=== PATIENT | male | born 1960 | race Caucasian/White ===

== ENCOUNTER 2020-11-07 15:04 | Outpatient (REF) | payer OTHER, SELFPAY ==
--- NOTE | 2020-11-07 15:07 | XR_ITS ---
EXAMINATION: CR CHEST CLINICAL INFORMATION: Chest pain. COMPARISON: Chest x-ray dated 10/04/2010. TECHNIQUE: 2 views of the chest were obtained on 3 images. FINDINGS: The cardiomediastinal silhouette is within normal limits in size. Lungs bilaterally are symmetrically hyperinflated and hyperlucent with thickening of the central airways and flattening of the hemidiaphragms seen, consistent with obstructive lung disease. No focal consolidation, effusion or pneumothorax is seen. Mild vertebral spurring seen in the lower thoracic spine. XR/XR chest 2V IMPRESSION: Findings are consistent with obstructive lung disease. No acute cardiac pulmonary process seen.
[2020-11-07 15:50] LABS: MANUAL DIFF FLAG NO
[2020-11-07 15:55] LABS: Basophils Percent Auto 0.2 % (0-2); Eosinophils Absolute Auto 0.2 X10*3/uL (0.0-0.4); Eosinophils Percent Auto 2.3 % (0-4); Hematocrit 47.2 % (42-52); Hemoglobin 15.2 g/dl (14.0-18.0); Imm Gran Abs Auto 0.02 X10*3/uL (0.00-0.03); Imm Gran Pct Auto 0.2 % (0.0-0.4); Lymphocytes Absolute Auto 2.5 X10*3/uL (1.2-4.9); Lymphocytes Percent Auto 26.6 % (20-40); Mean Corpuscular HGB Conc 32.2 g/dl (31.0-36.0); Mean Corpuscular Hemoglobin 29.5 pg (27.0-33.0); Mean Corpuscular Volume 91.7 fL (80-98); Mean Platelet Volume 9.3 fL (9.4-12.4); Monocytes Absolute Auto 0.6 X10*3/uL (0.1-1.2); Monocytes Percent Auto 6.6 % (2-11); Neutrophils Percent Auto 64.1 % (45-73); Platelet Count 275 X10*3/uL (160-400); Red Blood Count 5.15 X10*6/uL (4.60-5.80); Red Cell Distribution Width 11.8 % (11.0-16.0); White Blood Count 9.3 X10*3/uL (4.8-10.8)
[2020-11-07 16:08] LABS: D Dimer < 200 NG/ML
[2020-11-07 16:16] LABS: Alanine Aminotransferase 14 U/L (0-40); Albumin Level 4.6 g/dL (3.5-5.0); Alkaline Phosphatase 79 U/L (39-117); Anion Gap 12 (12-20); Aspartate Amino Transferase 14 U/L (5-37); Bilirubin Total 0.3 mg/dL (0.0-1.0); Blood Urea Nitrogen 20 mg/dL (9-16); Calcium 9.2 mg/dL (8.4-10.2); Carbon Dioxide 28 mmol/L (22-29); Chloride 105 mmol/L (96-108); Estimated Glomerular Filt Rate > 60; Glucose Random 88 mg/dL (60-115); Potassium 4.9 mmol/L (3.3-5.1); Sodium 140 mmol/L (135-145); Total Protein 6.7 g/dL (6.5-8.0)
== END 2020-11-07 15:05 | disposition home or self-care (01) ==
LOC: HO.HMGCLDS 15:04
PROVIDERS: PCP Internal Medicine; Visit Provider Nurse Practitioner Family
DX: R07.89 Other chest pain (principal)
CPT/HCPCS: 36415; 71046; 80053; 85025; 85379

== ENCOUNTER 2024-11-11 08:09 | Outpatient (REF) | payer OTHER, SELFPAY ==
[2024-11-11 10:58] LABS: Influenza A PCR NEGATIVE (Negative); Influenza B PCR NEGATIVE (Negative); Resp Syncy Virus RNA Qual PCR NEGATIVE (Negative); SARS COV2 PCR INHOUSE NEGATIVE (Negative)
== END 2024-11-11 08:10 | disposition home or self-care (01) ==
LOC: HO.LAB 08:09
PROVIDERS: PCP Internal Medicine; Visit Provider Physician Assistant
DX: J06.9 Acute upper respiratory infection, unspecified (principal)
CPT/HCPCS: 0241U

== ENCOUNTER 2025-05-04 10:19 | Outpatient (AMB) | payer OTHER, SELFPAY ==
[2025-05-04 10:20] VITALS: BP 140/70; PULSE 63; RESP 18; TEMP 36.2; O2SAT 97; BMI 29.2
--- NOTE | 2025-05-04 10:20 | MHC.PC.OV ---
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: No Accompanied by: Self / Same As Patient Allergies peanut (PEANUT) Allergy (Severe, Verified 05/04/25 10:51) THROAT SWELLING tree nut (TREE NUT) Allergy (Severe, Verified 05/04/25 10:51) THROAT SWELLING acetaminophen (Vicodin) Adverse Reaction (Unknown, Verified 05/04/25 10:51) metalic taste hydrocodone (Vicodin) Adverse Reaction (Unknown, Verified 05/04/25 10:51) metalic taste Medication List - Last Reconciled 05/04/25 by HINA Martinez No Known Home Meds Tobacco use date assessed: 05/04/25 Dental Screening Dental Screen Date: 05/04/25 Did you have a dental visit in the last 12 months?: Yes Did you have a dental problem in the last 6 months where you did not have access to dental care?: No Was dental information given to patient?: Patient has dentist 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 HPI Details The patient is presenting to establish care. He has chance for an from our [place] office. Reports that his previous PCP office said that he has been away for too long and they cannot see him now Previous PCP:Dr. West in [place] Last visit: reports that he does remember when he saw her last Last PE: remember he does not remember Specialist: no OBGYN:n/a Past medical history: left knee replacement 5 years ago at [facility], colon resection about 10 years, questioning due for new colonoscopy, diverticulitis-he was having frequent episodes of years before decided to do the resection. Problem: The patient is a 64-year-old male presenting with knee pain and shortness of breath on exertion. The patient reports knee pain that has worsened since undergoing a knee replacement approximately four to five years ago. The pain is described as stabbing and constant, with associated numbness, particularly noticeable at rest. The patient has not sought a second opinion and reports dissatisfaction with previous pain management options offered, such as laser pain treatment. The patient experiences shortness of breath during physical exertion, such as mowing the lawn, which has been ongoing for a while. He reports needing to take breaks more frequently than before due to becoming winded. The patient has a history of colon resection performed over ten years ago, with no current issues reported. He acknowledges the need for a follow-up colonoscopy, as it has been over ten years since the last one. The patient reports joint pain in the ankle and shoulders, attributing the ankle pain to the knee surgery. He describes the ankle pain as persistent since the surgery, with no prior history of ankle issues. The patient experiences foot pain, particularly after prolonged standing or walking, which has been present for over a year. He finds some relief with different footwear and soft surfaces. The patient reports nocturia, waking up at least two times per night to urinate, and feels he does not empty his bladder completely. He attributes some of the nocturia to drinking fluids close to bedtime. The patient has a history of diverticulitis and reports occasional constipation. The patient has a history of alcohol use disorder, having stopped drinking approximately 25 years ago. He also quit smoking around 20 years ago. [facility] Medical History History of alcoholism History of 2019 novel coronavirus disease (COVID-19) Former smoker Shortness of breath with exposure to COVID-19 virus Surgical History History of partial colectomy History of appendectomy History of tonsillectomy Family History Father No problems noted. 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 1. Little interest or pleasure in doing things: not at all 2. Feeling down, depressed, or hopeless: not at all 3. Trouble falling or staying asleep, or sleeping too much: several days 4. Feeling tired or having little energy: several days 5. Poor appetite or overeating: not at all 6. Feeling bad about yourself - or that you are a failure or have let yourself or your family down: not at all 7. Trouble concentrating on things, such as reading the newspaper or watching television: not at all 8. Moving or speaking so slowly that other people could have noticed. Or the opposite - being so fidgety or restless that you have been moving around a lot more than usual: not at all 9. Thoughts that you would be better off or of hurting yourself in some way: not at all Total score: 2 Depression Screening Interpretation: Negative Depression Screening Done: Yes 71495 - PHQ-9 Billing: Yes Source: Developed by Drs. Robin Croft, Courtney Oliva, Aden Carlos and colleagues, with an educational aida from [employer]. Thrive Questionnaire Date Thrive assessed: 05/04/25 I am a: Patient What is your living situation today?: I have a steady place to live Within the past 12 months, did the food you bought not last and you didn't have the money to get more?: Never true Within the past 12 months, did you worry whether your food would run out before you got money to buy more?: Never true Do you have trouble paying for medicines?: No Do you have trouble getting transportation to medical appointments?: No Do you have trouble paying your heating and electricity bill?: No Do you have trouble taking care of your child, family member or friend?: No Do you have trouble with day-to-day activities such as bathing, preparing meals, shopping, managing finances, etc.?: No Are you currently unemployed and looking for a job?: No Are you interested in more education?: No Please select the resources that you would like help with: None Currently or been in a relationship where the following occur: No concerns reported THRIVE Score: 0 AUDIT C Alcohol Use Questionnaire (AUDIT-C) 1. How often do you have a drink containing alcohol?: Never 3. How often do you have six or more drinks on one occasion?: Never Total Score: 0 YAIR-7 AMB Questionnaire YAIR-7 Date YAIR - 7 assessed: 05/04/25 Feeling nervous, anxious, or on edge: 1 = Several days Not being able to stop or control worryin = Not at all Worrying too much about different things: 0 = Not at all Trouble relaxin = Several days Being so restless that it is hard to sit still: 1 = Several days Becoming easily annoyed or irritable: 1 = Several days Feeling afraid as if something awful might happen: 0 = Not at all Total YAIR-7 score (0-4 normal; 5-9 mild; 10-14 moderate; 15-21 severe): 4 Source: Developed by Drs. Robin Croft, Courtney Oliva, Aden Carlos and colleagues, with an educational aida from [employer]. YAIR-7 Assessment Billing YAIR-7 Assessment Tool: YAIR-7 Assessment 68403 Review of Systems Const Denies headache(s) Eyes Denies loss of vision ENT Denies vertigo, Denies dizziness, Denies headache(s) and Denies sore throat Card Denies chest pain, Denies leg edema, Denies lightheadedness and Reports dyspnea on exertion Resp Denies cough, Denies hemoptysis, Reports dyspnea on exertion and Denies wheezing GI Denies abdominal pain, Denies melena, Reports constipation (occasional), Denies diarrhea and Denies vomiting Denies dysuria, Reports nocturia (Reports drinking seltzer water close to bedtime. Feels like his bladder is ), Denies urinary urgency and Reports other (feels like his bladder is not emptying completely) Musc Reports arthralgias (left knee and ankle), Denies joint swelling, Reports muscle cramps, Reports numbness (left knee) and Denies tingling Neuro Denies Abnormal speech present, Denies behavioral changes, Denies vertigo, Denies dizziness, Denies headache(s), Denies loss of vision, Denies memory loss, Reports numbness (left knee) and Denies tingling Psych Denies anxiety, Denies behavioral changes, Denies depression, Denies memory loss and Denies panic attacks Darell/Lymph Denies easy bleeding and Denies easy bruising Aller/Immun Denies wheezing Physical exam (Primary Care) Vital Signs: Last Vital Signs Temp 97.1 F 05/04/25 10:20 Pulse 63 05/04/25 10:20 Resp 18 05/04/25 10:20 BP 140/70 H 05/04/25 10:20 Pulse Ox 97 05/04/25 10:20 Oxygen Delivery Method Room Air 05/04/25 10:20 BMI result Body Mass Index 29.2 Tobacco/Smoking Status: Tobacco use Status Tobacco use date assessed 05/04/25 05/04/25 10:27 Patient Tobacco Use Status Never used Tobacco 05/04/25 10:31 e-Cigarette/Vaping Use Never Used 05/04/25 10:31 PHQ-9: PHQ-9 Score PHQ-9: Total score 2 05/04/25 13:09 Depression Screening Interpretation: Negative Thrive Assessment: Date of Thrive Assessment Date Thrive assessed 05/04/25 05/04/25 10:27 Currently or been in a relationship where the following occur: No concerns reported Const General: healthy appearing, no acute distress, alert and awake Nutritional Appearance: well nourished Orientation/consciousness: oriented to person, oriented to place and oriented to time HENMT Ears: TM normal on the right and Abnormal EAC present excessive cerumen on the left General nose exam: Normal nasal mucous membranes and turbinates present Eyes Conjunctivae: conjunctivae normal Sclerae: sclerae normal Pupils: Equal, round and reactive pupils present Neck Neck: Yes no lymphadenopathy and Yes no JVD Thyroid: Thyroid normal Carotids: no bruits Resp Effort & Inspection: normal respiratory effort and not tachypneic Auscultation: no crackles, no rales, no rhonchi and no wheezes Cardio Rate: regular rate Rhythm: regular rhythm Heart sounds: no murmurs and normal S1 and S2 GI Palpation (GI): Soft to palpation, nontender, no hepatomegaly and no splenomegaly Auscultation: normal bowel sounds Skin General skin exam: no rashes or lesions noted and dry skin Neuro General: oriented to person, oriented to place and oriented to time Cranial nerves: Yes Equal, round and reactive pupils present Speech: No Abnormal speech present Gait exam (Neuro): Normal gait present Motor exam (neuro): no tremor noted Extrem Right upper extremity: full ROM Left upper extremity: full ROM Right lower extremity: full ROM and ankle Details: no tenderness and no swelling; no edema Left lower extremity: full ROM and knee Details: no tenderness and no swelling; no edema Psych Mental Status: mental status grossly normal Speech and movement: Normal speech and movement present Affect: normal affect Attitude: cooperative Thought process: Normal thought process present Coding Level of Care Code New Pt Level 4 (15880) Diagnoses Elevated blood pressure reading R03.0 Shortness of breath on exertion R06.02 Nocturia R35.1 Chronic pain of left knee M25.562; G89.29 Chronicity: chronic Chronic pain of left ankle M25.572; G89.29 Chronicity: chronic Muscle cramps R25.2 Excessive cerumen in left ear canal H61.22 Additional Codes YAIR-7 Assessment Billing - YAIR-7 Assessment Tool: YAIR-7 Assessment 43425 ([id number]) PHQ-9 - 23202 - PHQ-9 Billing: Yes ([id number]) Time Spent (min) 41 Assessment & Plan Assessment & Plan (1) Elevated blood pressure reading: Code(s): R03.0 - Elevated blood-pressure reading, without diagnosis of hypertension Category: Medical Plan: Patient blood pressure is slightly elevated in office. Reports that his always been slightly elevated but no treatment has ever been recommended. Encouraged low-salt diet. We will continue to monitor (2) Shortness of breath on exertion: Code(s): R06.02 - Shortness of breath Category: Medical Plan: Lungs clear, no respiratory distress or leg swelling on exam. BNP ordered along with an EKG We will reassess on follow up visit (3) Nocturia: Code(s): R35.1 - Nocturia Category: Medical Plan: Patient reports drinking Felda water close to bedtime, however, at times he feels like his bladder is not completely empty after using the bathroom PSA ordered. Encouraged the patient to not drink close to bedtime (4) Left knee pain: Code(s): M25.562 - Pain in left knee Category: Medical Qualifiers: Chronicity: chronic Qualified Code(s): M25.562 - Pain in left knee; G89.29 - Other chronic pain Plan: Reports left knee pain and status post left knee surgery. Reports that the pain got worse after the surgery. The patient reports having a surgery done at [facility] and reports that he reported this to them and they evaluated him and told him that nothing was wrong with his knee Reports that he was upset and never returned. We will do a left knee x-ray to further evaluate (5) Left ankle pain: Code(s): M25.572 - Pain in left ankle and joints of left foot Category: Medical Qualifiers: Chronicity: chronic Qualified Code(s): M25.572 - Pain in left ankle and joints of left foot; G89.29 - Other chronic pain Plan: Left ankle pain started after left knee surgery Left ankle x-ray ordered (6) Muscle cramps: Code(s): R25.2 - Cramp and spasm Category: Medical Plan: We will evaluate his electrolytes. Encouraged the patient to start taking magnesium oxide 400 mg at bedtime. Encouraged the patient to make sure that he is adequately hydrated. (7) Excessive cerumen in left ear canal: Code(s): H61.22 - Impacted cerumen, left ear Category: Medical Plan: Debrox ear drops kit was recommended in the process was explained to the patient. We will reassess at his follow up visit Plan The plan includes ordering an x-ray for the left knee and ankle to assess for any changes or arthritis, given the patient's persistent pain and previous knee replacement. Additionally, a colonoscopy is recommended due to the patient's history of colon resection and the time elapsed since the last screening. Lab tests will be conducted to evaluate kidney function and other parameters, addressing concerns such as nocturia and overall health maintenance. For the patient's ear issues, the use of ear drops is suggested to soften any wax, with a follow-up plan to assess the need for further intervention or referral to an ENT specialist if necessary. The patient is advised to monitor fluid intake, especially before bedtime, to manage nocturia. Patient was informed and verbally consented to the use of an ambient scribe for clinic note documentation during this visit. Orders: Orders TSH reflex Free T4 Today F10.21 - Alcohol dependence, in remission, R03.0 - Elevated blood-pressure reading, without diagnosis of hypertension, R25.2 - Cramp and spasm, R35.1 - Nocturia, Z00.00 - Encounter for general adult medical examination without abnormal findings Vitamin D 25-OH Total Today F10.21 - Alcohol dependence, in remission, R03.0 - Elevated blood-pressure reading, without diagnosis of hypertension, R25.2 - Cramp and spasm, R35.1 - Nocturia, Z00.00 - Encounter for general adult medical examination without abnormal findings PSA,Total (Free>4and<10) Today . - Alcohol dependence, in remission, R03.0 - Elevated blood-pressure reading, without diagnosis of hypertension, R25.2 - Cramp and spasm, R35.1 - Nocturia, Z00.00 - Encounter for general adult medical examination without abnormal findings Magnesium Today . - Alcohol dependence, in remission, R03.0 - Elevated blood-pressure reading, without diagnosis of hypertension, R25.2 - Cramp and spasm, R35.1 - Nocturia, Z00.00 - Encounter for general adult medical examination without abnormal findings B Type Natriuretic Peptide Today - Alcohol dependence, in remission, R03.0 - Elevated blood-pressure reading, without diagnosis of hypertension, R25.2 - Cramp and spasm, R35.1 - Nocturia, Z00.00 - Encounter for general adult medical examination without abnormal findings XR knee LT 3V Today M25.562 - Pain in left knee XR ankle LT min 3V Today M25.572 - Pain in left ankle and joints of left foot ECG 12 lead EKG Today R06.02 - Shortness of breath Complete Blood Count Auto Diff Today - Alcohol dependence, in remission, R03.0 - Elevated blood-pressure reading, without diagnosis of hypertension, R25.2 - Cramp and spasm, R35.1 - Nocturia, Z00.00 - Encounter for general adult medical examination without abnormal findings Comprehensive Castor. Panel Fast Today . - Alcohol dependence, in remission, R03.0 - Elevated blood-pressure reading, without diagnosis of hypertension, R25.2 - Cramp and spasm, R35.1 - Nocturia, Z00.00 - Encounter for general adult medical examination without abnormal findings Lipid Panel Today . - Alcohol dependence, in remission, R03.0 - Elevated blood-pressure reading, without diagnosis of hypertension, R25.2 - Cramp and spasm, R35.1 - Nocturia, Z00.00 - Encounter for general adult medical examination without abnormal findings UA CC w/rflx Micro + Cult Today - Alcohol dependence, in remission, R03.0 - Elevated blood-pressure reading, without diagnosis of hypertension, R25.2 - Cramp and spasm, R35.1 - Nocturia, Z00.00 - Encounter for general adult medical examination without abnormal findings Vitamin B12 and Folate Today F10.21 - Alcohol dependence, in remission, R03.0 - Elevated blood-pressure reading, without diagnosis of hypertension, R25.2 - Cramp and spasm, R35.1 - Nocturia, Z00.00 - Encounter for general adult medical examination without abnormal findings Referrals Gastroenterology Referral Z12.11 - Encounter for screening for malignant neoplasm of colon, Z12.12 - Encounter for screening for malignant neoplasm of rectum
--- OUTSIDE RECORDS SUMMARY | 2025-05-04 11:12 | XMS_ITS | Patient Health Record ---
Author Organization [facility] [place]ard [place] Address [address] [place] [id number] Care Team Providers Care Contract Assistant Name Role Phone Laura LO, My Valle Primary Care Provider Un available Yolis Payton Unavailable [phone] Reason For Referral No Information Medications Medication SIG (Take, Route, Fr equency, Duration) Notes Start Date End Date Status Mobic 7.5 MG 1 tablet Orally Once a day 07/25/2018 Active Viagra 50 MG 1 tablet as needed O rally Once a day 07/25/2018 Active Diclofenac Sodium 50 MG 1 tablet with fo od or milk Orally Three times a day 07/25/2018 Active Immunizations Vaccine Route Administration Date Status Comme nts Influenza Unknown 07/30/2018 Administered Social History Tobacco Use: Social History Observation Description Date Details (start date - stop date) Current Smoker NA - NA Tobacco Use/Smoking Question Answer Notes Are you a: current smoker Additional Findings: Tobacco Non-User Current no n-smoker Alcohol Screen Question Answer Notes Did you have a drink containing alcohol in the p ast year? No Points 0 Interpretation Negative Problems Problem Type SNOMED Code ICD Code Onset Dates Problem Status W/U Status Risk Notes Problem Equinus contracture of right ankle (M24.571) Active confirmed Plan Of Treatment Pending Test Test Name Order Date X ray : Foot, right 3V 07/30/2018 Insurance Providers Payer Name Payer Address Payer Phone Subscriber Number Group Number Insured Name Patient Relationship to Insured Coverage Start Date Coverage End Date [facility] [address] [place] [address] [id number], [address] Self - patient is the insured Medical (General) History Medical History History ICD Code Diverticulitis Back pain Arthritis Broken bones Surgical History Surgery Date(Month/Year) tonsillectomy appendectomy colectomy, partial colonoscopy 03/2012
== END 2025-05-04 11:26 | disposition home or self-care (01) ==
LOC: HO.HMCH 10:19
DX: R03.0 Elevated blood-pressure reading, without diagnosis of hypertension (principal); R06.02 Shortness of breath; R35.1 Nocturia; M25.562 Pain in left knee; G89.29 Other chronic pain; M25.572 Pain in left ankle and joints of left foot; R25.2 Cramp and spasm; H61.22 Impacted cerumen, left ear

== ENCOUNTER → 2025-05-04 10:19 | Outpatient (BNVA) | payer OTHER, SELFPAY | PROVIDERS: PCP Internal Medicine | DX: R06.02 Shortness of breath (principal); R03.0 Elevated blood-pressure reading, without diagnosis of hypertension; R35.1 Nocturia; M25.562 Pain in left knee; G89.29 Other chronic pain; M25.572 Pain in left ankle and joints of left foot; R25.2 Cramp and spasm; H61.22 Impacted cerumen, left ear; Z13.31 Encounter for screening for depression; Z13.39 Encounter for screening examination for other mental health and behavioral disorders | CPT/HCPCS: 96127 ==

== ENCOUNTER 2025-05-21 06:13 | Outpatient (REF) | payer OTHER, SELFPAY ==
--- NOTE | ~2025-05-21 | XR_ITS ---
EXAMINATION: XR ANKLE 3 OR MORE VIEWS LEFT HISTORY: M25.572 - Pain in left ankle and joints of left foot COMPARISON: There are no prior studies available for comparison. FINDINGS: Three views of the left ankle are submitted. Osseous mineralization is normal. There is no fracture or dislocation. The joint spaces are preserved. The soft tissues are unremarkable. XR/XR ankle LT min 3V IMPRESSION: Unremarkable examination of the left ankle. Electronically signed by: Robin Mora MD 05/21/2025 07:26 AM EDT
--- NOTE | ~2025-05-21 | XR_ITS ---
EXAMINATION: XR KNEE 3 VIEWS LEFT HISTORY: M25.562 - Pain in left knee COMPARISON: There are no prior studies for comparison. FINDINGS: AP and lateral views of the left knee are submitted. The patient is again noted to be status post left total knee arthroplasty. The orthopedic elements are in anatomic alignment. There is no radiographic evidence of loosening. There is no fracture or dislocation. There is no joint effusion. The soft tissues are unremarkable. XR/XR knee LT 3V IMPRESSION: Status post left total knee arthroplasty. Electronically signed by: Robin Mora MD 05/21/2025 07:27 AM EDT
[2025-05-21 07:02] LABS: MANUAL DIFF FLAG NO
--- NOTE | 2025-05-21 07:28 | ECG_ITS ---
Test Reason : sob Blood Pressure : */* mmHG Vent. Rate : 51 BPM Atrial Rate : 51 BPM P-R Int : 132 ms QRS Dur : 116 ms QT Int : 478 ms P-R-T Axes : 11 76 54 degrees QTcB Int : 440 ms Sinus bradycardia Otherwise normal ECG No previous ECGs available Referred By: Russell Bunch Electronically Signed By: Otis Marquez
[2025-05-21 07:39] LABS: Hematocrit 45.5 % (42.0-52.0); Hemoglobin 15.7 g/dl (14.0-18.0); Imm Gran Abs Auto 0.02 X10*3/uL (0.00-0.03); Imm Gran Pct Auto 0.3 % (0.0-0.4); Lymphocytes Absolute Auto 1.6 X10*3/uL (1.2-4.9); Mean Corpuscular HGB Conc 34.5 g/dl (31.0-36.0); Mean Corpuscular Hemoglobin 30.7 pg (27.0-33.0); Mean Corpuscular Volume 89.0 fL (80.0-98.0); NRBC Abs Auto 0.000 X10*3/uL (0.0-0.012); NRBC Pct Auto 0.0 /100WBC (0.0-0.2); Platelet Count 245 X10*3/uL (160-400); Red Blood Count 5.11 X10*6/uL (4.60-5.80); White Blood Count 6.0 X10*3/uL (4.8-10.8)
[2025-05-21 08:13] LABS: B Type Natriuretic Peptide 32 pg/mL (<100)
[2025-05-21 08:21] LABS: Alanine Aminotransferase 23 U/L (0-40); Albumin Level 4.5 g/dL (3.5-5.0); Alkaline Phosphatase 92 U/L (39-117); Anion Gap 12 (12-20); Aspartate Amino Transferase 20 U/L (5-37); Blood Urea Nitrogen 18 mg/dL (9-16); Calcium 8.9 mg/dL (8.4-10.2); Carbon Dioxide 25 mmol/L (22-29); Chloride 109 mmol/L (96-108); Cholesterol 169 mg/dL (<200); Estimated Glomerular Filt Rate > 60; HDL Cholesterol 38 mg/dL (>40); Magnesium 2.2 mg/dL (1.6-2.6); Potassium 4.7 mmol/L (3.3-5.1); Sodium 141 mmol/L (135-145); Total Protein 6.6 g/dL (6.5-8.0); Triglycerides 54 mg/dL (<150)
[2025-05-21 08:29] LABS: PSA,Total (Free>4and<10) 2.98 ng/mL (0.00-4.00)
[2025-05-21 08:42] LABS: Folate 13.2 ng/mL (> or = 4.0); Vitamin B12 288 pg/mL (200-900)
[2025-05-21 08:49] LABS: Appearance Urine Clear; Glucose Urine UA Negative (Negative); PH 6.0 (5.0-9.0); Specific Gravity - Urine 1.025 (1.005-1.025)
== END 2025-05-21 06:14 | disposition home or self-care (01) ==
LOC: HO.HMGCLDS 06:13
DX: Z00.00 Encounter for general adult medical examination without abnormal findings (principal); Z13.6 Encounter for screening for cardiovascular disorders; Z12.5 Encounter for screening for malignant neoplasm of prostate; M25.562 Pain in left knee; M25.572 Pain in left ankle and joints of left foot; R06.02 Shortness of breath; R03.0 Elevated blood-pressure reading, without diagnosis of hypertension; R35.1 Nocturia; R25.2 Cramp and spasm; F10.21 Alcohol dependence, in remission
CPT/HCPCS: 36415; 73562; 73610; 80053; 80061; 81003; 82306; 82607; 82746; 83735; 83880; 84153; 85025; 93005

== ENCOUNTER → 2025-05-21 07:05 | Outpatient (BNV) | payer OTHER, SELFPAY | PROVIDERS: Visit Provider Radiology Diagnostic Radiology | DX: M25.562 Pain in left knee (principal); M25.572 Pain in left ankle and joints of left foot | CPT/HCPCS: 73562; 73610 ==

== ENCOUNTER → 2025-05-21 07:28 | Outpatient (BNV) | payer OTHER, SELFPAY | PROVIDERS: Visit Provider Internal Medicine Cardiovascular Disease | DX: R00.1 Bradycardia, unspecified (principal) | CPT/HCPCS: 93010 ==

== ENCOUNTER 2025-07-02 13:28 | Outpatient (AMB) | payer OTHER, SELFPAY ==
[2025-07-02 13:32] VITALS: BP 128/80; PULSE 67; RESP 18; TEMP 36.1; O2SAT 94; BMI 28.2
--- NOTE | 2025-07-02 13:32 | A.OFFPC_ITS ---
Vital Signs 07/02/25 13:32 Height 5 ft 11 in Weight 202 lb 2 oz BMI 28.2 BP 128/80 Blood Pressure Location Lt brachial Position Sitting Respiration 18 Pulse 67 Pulse Source Pulse Oximeter Temp 96.9 F Temp Source Temporal Artery Scan Pulse Oximetry (%) 94 Oxygen Delivery Method Room Air Intake Visit Reasons: Annual Exam C.O.D. Biller Required: No Accompanied by: Self / Same As Patient Allergies peanut (PEANUT) Allergy (Severe, Verified 07/02/25 13:45) THROAT SWELLING tree nut (TREE NUT) Allergy (Severe, Verified 07/02/25 13:45) THROAT SWELLING acetaminophen (Vicodin) Adverse Reaction (Unknown, Verified 07/02/25 13:45) metalic taste hydrocodone (Vicodin) Adverse Reaction (Unknown, Verified 07/02/25 13:45) metalic taste Medication List - Last Reconciled 07/02/25 by HINA Martinez No Known Home Meds Tobacco use date assessed: 07/02/25 Dental Screening Dental Screen Date: 07/02/25 Did you have a dental visit in the last 12 months?: Yes Did you have a dental problem in the last 6 months where you did not have access to dental care?: No Was dental information given to patient?: Patient has dentist HPI Annual Exam HPI Details Dentist: up to date Eye: over a year Snellen: Right: Left: Corrected vision: reading glasses STI screening: Colonoscopy:Reports having an appointment Pap Smer:n/a PHQ-9: Flu:reports that he takes this sometimes COVID:x2 Tdap: given in office Diet:regular Exercise: does not workout, but reports that he is very active The patient is a 64-year-old male presenting with concerns of hyperlipidemia, knee pain, erectile dysfunction, fatigue, and sleep disturbances. The patient's laboratory results indicate hyperlipidemia, with an LDL cholesterol level of 121 mg/dL, which is above the desired level of less than 100 mg/dL. Dietary modifications were discussed, including reducing intake of fried foods, red meat, and shellfish, while emphasizing moderation rather than elimination. The patient reports chronic knee pain, which has been persistent since a previous surgery. Imaging studies show post-surgical changes but no new abnormalities. The patient experiences erectile dysfunction and reports a decreased libido, which has been a concern for some time. He also reports significant fatigue, which he attributes to poor sleep quality due to leg pain. The patient denies frequent urination but notes waking up multiple times at night, which he believes is due to discomfort in his leg rather than a need to urinate. Patient reports toenail fungus primarily on his great toes bilaterally [facility] Medical History History of alcoholism History of 2019 novel coronavirus disease (COVID-19) Former smoker Shortness of breath with exposure to COVID-19 virus Surgical History History of partial colectomy History of appendectomy History of tonsillectomy Family History Father No problems noted. 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 Cognitive needs: No Hearing needs: No Vision needs: No Questionnaire Thrive Questionnaire Date Thrive assessed: 05/04/25 I am a: Patient What is your living situation today?: I have a steady place to live Within the past 12 months, did the food you bought not last and you didn't have the money to get more?: Never true Within the past 12 months, did you worry whether your food would run out before you got money to buy more?: Never true Do you have trouble paying for medicines?: No Do you have trouble getting transportation to medical appointments?: No Do you have trouble paying your heating and electricity bill?: No Do you have trouble taking care of your child, family member or friend?: No Do you have trouble with day-to-day activities such as bathing, preparing meals, shopping, managing finances, etc.?: No Are you currently unemployed and looking for a job?: No Are you interested in more education?: No Please select the resources that you would like help with: None Currently or been in a relationship where the following occur: No concerns reported THRIVE Score: 0 YAIR-7 AMB Questionnaire YAIR-7 Date YAIR - 7 assessed: 05/04/25 Source: Developed by Drs. Robin Croft, Courtney Oliva, Aden Carlos and colleagues, with an educational aida from [employer]. Review of Systems Const Reports difficulty sleeping, Reports fatigue, Denies headache(s), Reports lethargy and Reports snoring Eyes Denies loss of vision ENT Denies vertigo, Denies dizziness, Denies headache(s) and Denies sore throat Card Denies chest pain, Denies leg edema and Denies lightheadedness Resp Denies cough, Denies hemoptysis, Reports snoring and Denies wheezing GI Denies abdominal pain, Denies melena, Denies constipation, Denies diarrhea and Denies vomiting Reports erectile dysfunction, Denies dysuria, Denies urinary frequency and Denie s urinary urgency Musc Reports arthralgias (Left knee and left ankle), Denies joint swelling, Denies numbness and Denies tingling Skin/Breast Reports other (Toenail fungus) Neuro Denies Abnormal speech present, Denies behavioral changes, Denies vertigo, Denies dizziness, Denies headache(s), Denies loss of vision, Denies memory loss, Denies numbness and Denies tingling Psych Denies anxiety, Denies behavioral changes, Denies depression, Denies memory loss and Denies panic attacks Endo Reports fatigue Darell/Lymph Denies easy bleeding and Denies easy bruising Aller/Immun Denies wheezing Physical exam (Primary Care) Vital Signs: Last Vital Signs Temp 96.9 F 07/02/25 13:32 Pulse 67 07/02/25 13:32 Resp 18 07/02/25 13:32 BP 128/80 07/02/25 13:32 Pulse Ox 94 07/02/25 13:32 Oxygen Delivery Method Room Air 07/02/25 13:32 BMI result Body Mass Index 28.2 Tobacco/Smoking Status: Tobacco use Status Tobacco use date assessed 07/02/25 07/02/25 13:38 Patient Tobacco Use Status Never used Tobacco 07/02/25 13:38 e-Cigarette/Vaping Use Never Used 07/02/25 13:38 Thrive Assessment: Date of Thrive Assessment Date Thrive assessed 05/04/25 07/02/25 13:38 Currently or been in a relationship where the following occur: No concerns reported Const General: healthy appearing, no acute distress, alert and awake Nutritional Appearance: well nourished Orientation/consciousness: oriented to person, oriented to place and oriented to time HENMT Ears: TM's normal bilaterally General nose exam: Normal nasal mucous membranes and turbinates present Eyes Conjunctivae: conjunctivae normal Sclerae: sclerae normal Pupils: Equal, round and reactive pupils present Neck Neck: Yes no lymphadenopathy and Yes no JVD Thyroid: Thyroid normal Carotids: no bruits Resp Effort & Inspection: normal respiratory effort and not tachypneic Auscultation: no crackles, no rales, no rhonchi and no wheezes Cardio Rate: regular rate Rhythm: regular rhythm Heart sounds: S1 normal heart sound present, S2 normal heart sound present, no murmurs and normal S1 and S2 GI Palpation (GI): Soft to palpation, nontender, no hepatomegaly and no splenomegaly Auscultation: normal bowel sounds General: Yes no CVA tenderness Back/Spine/Pelvis Back: no CVA tenderness Thoracic/Lumbar Spine: thoracic and lumbar spine normal to inspection Skin General skin exam: dry skin Nails: yellow and thickened (Great toe-bilateral) Neuro General: oriented to person, oriented to place, oriented to time and CN's II-XI intact bilaterally Cranial nerves: Yes Equal, round and reactive pupils present and Yes Nystagmus not present Speech: No Abnormal speech present Gait exam (Neuro): Normal gait present Motor exam (neuro): no tremor noted Deep tendon reflexes (DTR's): Right triceps reflex intensity grade: 2+, Left triceps reflex intensity grade: 2+, Rt Biceps (C5, C6): 2+, Left biceps reflex intensity grade: 2+, Right brachioradialis reflex intensity grade: 2+ and Left brachioradialis reflex intensity grade: 2+ Extrem Right upper extremity: full ROM Left upper extremity: full ROM Right lower extremity: full ROM; no edema Left lower extremity: full ROM; no edema Psych Mental Status: mental status grossly normal Speech and movement: Normal speech and movement present Affect: normal affect Attitude: cooperative Thought process: Normal thought process present Immunizations Tenivac (PF) 5 Lf unit-2 Lf unit/0.5 mL intramuscular syringe Performing Provider: Russell Bunch, PARTS COUNTER SALESPERSON-C Performing Location: [facility] Administered by: FAMILIA Guillaume on 07/02/25 14:00 Dose Route Admin Location Dispensed Lot Number Expiration Date ND Corporate Security Officer 0.5 mL IM Left Deltoid 0.5 mL [id number] 01/05/27 39990-664-49 [employer] Total Dispensed Waste 0.5 mL 0 % VIS Given Date VIS Provided VIS Publication Date 07/02/25 Single Vaccine 21 Eligibility Eligibility Date Funding Source Not [facility] Eligible 07/02/25 Private Results Reviewed Results Reviewed: Laboratory Tests 05/21/25 05/21/25 06:55 06:59 WBC 6.0 RBC 5.11 Hgb 15.7 Hct 45.5 MCV 89.0 MCH 30.7 MCHC 34.5 RDW 12.4 Plt Count 245 Sodium 141 Potassium 4.7 Chloride 109 H Carbon Dioxide 25 Anion Gap 12 BUN 18 H Creatinine 1.13 Estimated GFR > 60 Fasting Glucose 99 Calcium 8.9 Magnesium 2.2 Total Bilirubin 0.5 AST 20 ALT 23 Alkaline Phosphatase 92 B-Natriuretic Peptide 32 Total Protein 6.6 Albumin 4.5 Triglycerides 54 Cholesterol 169 LDL Cholesterol, Calc 121 H HDL Cholesterol 38 L Total PSA 2.98 Vitamin B12 288 25-OH Vitamin D Total 34.6 Folate 13.2 Urine Color Yellow Urine Appearance Clear Urine pH 6.0 Ur Specific [place] 1.025 Urine Protein Negative Urine Glucose (UA) Negative Urine Ketones Negative Urine Blood Negative Urine Nitrite Negative Ur Leukocyte Esterase Negative Coding Level of Care Code Est Pt Prev Care 40-64y(73943) Diagnoses Annual physical exam Z00.00 Elevated blood pressure reading R03.0 Shortness of breath on exertion R06.02 Nocturia R35.1 Chronic pain of left knee M25.562; G89.29 Chronicity: chronic Chronic pain of left ankle M25.572; G89.29 Chronicity: chronic Muscle cramps R25.2 Excessive cerumen in left ear canal H61.22 Hyperlipidemia, unspecified hyperlipidemia type E78.5 Hyperlipidemia type: unspecified Encounter for colorectal cancer screening Z12.11; Z12.12 Fatigue, unspecified type R53.83 Fatigue type: unspecified Time Spent (min) 39 Assessment & Plan Assessment & Plan (1) Annual physical exam: Code(s): Z00.00 - Encounter for general adult medical examination without abnormal findings Category: Medical Plan: Preventative guidelines and recent labs reviewed with the patient. Tdap given in office today. Patient is up-to-date on his screenings. (2) Elevated blood pressure reading: Code(s): R03.0 - Elevated blood-pressure reading, without diagnosis of hypertension Category: Medical Plan: Blood pressure 128/80-systolic goal less than 130 mm hg Reinforced low-salt diet and activity as tolerated (3) Shortness of breath on exertion: Code(s): R06.02 - Shortness of breath Category: Medical Plan: Lungs clear, no respiratory distress or leg swelling on exam. EKG was sinus John and he is not anemic on his labs We will continue to monitor (4) Nocturia: Code(s): R35.1 - Nocturia Category: Medical Plan: Patient reports drinking [place] water close to bedtime, however, at times he feels like his bladder is not completely empty after using the bathroom. Patient PSA was 2.98. Encouraged not to drink close to bedtime (5) Left knee pain: Code(s): M25.562 - Pain in left knee Category: Medical Qualifiers: Chronicity: chronic Qualified Code(s): M25.562 - Pain in left knee; G89.29 - Other chronic pain Plan: Reports left knee pain and status post left knee surgery. Reports that the pain got worse after the surgery. The patient reports having a surgery done at [facility] and reports that he reported this to them and they evaluated him and told him that nothing was wrong with his knee Reports that he was upset and never returned. Left knee X-ray shows no acute findings (6) Left ankle pain: Code(s): M25.572 - Pain in left ankle and joints of left foot Category: Medical Qualifiers: Chronicity: chronic Qualified Code(s): M25.572 - Pain in left ankle and joints of left foot; G89.29 - Other chronic pain Plan: Left ankle pain started after left knee surgery Left ankle x-ray unremarkable. Discussed with the patient that this might be sprain that is slow healing (7) Muscle cramps: Code(s): R25.2 - Cramp and spasm Category: Medical Plan: The patient electrolytes are within normal limits. Encouraged adequate hydration. Recommend taking magnesium oxide 400 mg at bedtime. (8) Excessive cerumen in left ear canal: Code(s): H61.22 - Impacted cerumen, left ear Category: Medical Plan: Debrox ear drops kit was recommended in the process was explained to the patient. The patient we will book a follow up here flush and start Debrox ear drops at least 4 days prior to visit. (9) HLD (hyperlipidemia): Code(s): E78.5 - Hyperlipidemia, unspecified Category: Medical Qualifiers: Hyperlipidemia type: unspecified Qualified Code(s): E78.5 - Hyperlipidemia, unspecified Plan: LDL 121 mg/dL this was 116 on his previous lab-discussed with the patient that his cholesterol is even though on that critical is trending in the wrong direction. We will repeat his lipid panel in 3 months (10) Encounter for colorectal cancer screening: Code(s): Z12.11 - Encounter for screening for malignant neoplasm of colon; Z12.12 - Encounter for screening for malignant neoplasm of rectum Category: Medical Plan: GI referral was placed at his previous visit and he has an appointment coming up (11) Fatigue: Code(s): R53.83 - Other fatigue Category: Medical Qualifiers: Fatigue type: unspecified Qualified Code(s): R53.83 - Other fatigue Plan: SCOTT and Lyme panel were added to preordered labs. Discussed with the patient that this may be related to sleep apnea. Orders: Orders Td Immunization 07/02/25 Z23 - Encounter for immunization Testosterone, Free/Total 07/02/25 R35.1 - Nocturia, R53.83 - Other fatigue PSA,Total (Free>4and<10) 07/02/25 R35.1 - Nocturia, R53.83 - Other fatigue Lyme IgG/IgM w/reflex to WB 07/02/25 R35.1 - Nocturia, R53.83 - Other fatigue UA CC w/rflx Micro + Cult 3 Months E78.5 - Hyperlipidemia, unspecified, R03.0 - Elevated blood-pressure reading, without diagnosis of hypertension, R06.02 - Shortness of breath, R35.1 - Nocturia, R53.83 - Other fatigue SCOTT Reflex Titer and Pattern 07/02/25 R35.1 - Nocturia, R53.83 - Other fatigue Comprehensive [place]. Panel Fast 3 Months E78.5 - Hyperlipidemia, unspecified, R03.0 - Elevated blood-pressure reading, without diagnosis of hypertension, R06.02 - Shortness of breath, R35.1 - Nocturia, R53.83 - Other fatigue Lipid Panel 3 Months E78.5 - Hyperlipidemia, unspecified, R03.0 - Elevated blood-pressure reading, without diagnosis of hypertension, R06.02 - Shortness of breath, R35.1 - Nocturia, R53.83 - Other fatigue TSH reflex Free T4 3 Months E78.5 - Hyperlipidemia, unspecified, R03.0 - Elevated blood-pressure reading, without diagnosis of hypertension, R06.02 - Shortness of breath, R35.1 - Nocturia, R53.83 - Other fatigue RT home sleep study Today G47.19 - Other hypersomnia, G47.30 - Sleep apnea, unspecified, R06.83 - Snoring, R53.83 - Other fatigue Referrals Podiatry Referral B35.1 - Tinea unguium
--- OUTSIDE RECORDS SUMMARY | 2025-07-02 14:47 | XMS_ITS | Patient Health Record ---
Author Organization [facility] [place] Address [address] [place] [address] Care Team Providers Care Guest Service Aide Name Role Phone Laura LO, My Valle Primary Care Provider Un available Tommyerin Yolis Unavailable [phone] Reason For Referral No Information Medications Medication [...] Problem Status W/U Status Risk Notes Problem Plantarflexion deformity of right foot (finding) ([id number]) Equinus contracture of right ankle (M24.571) Active confirmed Plan Of Treatment Pending Test Test Name Order Date X ray : Foot, right 3V 07/30/2018 Insurance Providers Payer Name Payer Address Payer Phone Subscriber Number Group Number Insured Name Patient Relationship to Insured Coverage Start Date Coverage End Date [facility] [address] [place] [address] [id number] Self - patient is the insured Medical (General) History Medical History History ICD Code Diverticulitis Back pain Arthritis Broken bones Surgical History Surgery Date(Month/Year) tonsillectomy appendectomy colectomy, partial colonoscopy 03/2012
== END 2025-07-02 14:31 | disposition home or self-care (01) ==
LOC: HO.HMCH 13:29
PROVIDERS: PCP Internal Medicine
DX: Z00.00 Encounter for general adult medical examination without abnormal findings (principal); R03.0 Elevated blood-pressure reading, without diagnosis of hypertension; R06.02 Shortness of breath; R35.1 Nocturia; M25.562 Pain in left knee; G89.29 Other chronic pain; M25.572 Pain in left ankle and joints of left foot; R25.2 Cramp and spasm; H61.22 Impacted cerumen, left ear; E78.5 Hyperlipidemia, unspecified; Z12.11 Encounter for screening for malignant neoplasm of colon; Z12.12 Encounter for screening for malignant neoplasm of rectum; R53.83 Other fatigue

== ENCOUNTER → 2025-07-02 13:28 | Outpatient (BNVA) | payer OTHER, SELFPAY | PROVIDERS: PCP Internal Medicine | DX: Z00.00 Encounter for general adult medical examination without abnormal findings (principal); E78.5 Hyperlipidemia, unspecified; N52.9 Male erectile dysfunction, unspecified; R53.83 Other fatigue; R03.0 Elevated blood-pressure reading, without diagnosis of hypertension; R06.02 Shortness of breath; M25.562 Pain in left knee; M25.572 Pain in left ankle and joints of left foot; G89.29 Other chronic pain; R25.2 Cramp and spasm; H61.22 Impacted cerumen, left ear; Z23 Encounter for immunization | CPT/HCPCS: 90471; 90714 ==

== ENCOUNTER 2025-07-16 12:09 | Outpatient (REF) | payer OTHER, SELFPAY ==
[2025-07-16 17:28] LABS: PSA,Total (Free>4and<10) 2.74 ng/mL (0.00-4.00)
[2025-07-17 10:57] LABS: Lyme Abs Screen <0.90 index
[2025-07-21 11:48] LABS: Anti Nuclear Antibody Screen NEGATIVE (NEGATIVE)
[2025-07-21 18:18] LABS: Testosterone, Free 54.9 pg/mL (35.0-155.0)
== END 2025-07-16 12:10 | disposition home or self-care (01) ==
LOC: HO.HMGCLDS 12:09
PROVIDERS: PCP Internal Medicine
DX: Z00.00 Encounter for general adult medical examination without abnormal findings (principal); Z01.84 Encounter for antibody response examination; F10.21 Alcohol dependence, in remission; R25.2 Cramp and spasm; Z12.5 Encounter for screening for malignant neoplasm of prostate; R53.83 Other fatigue; R35.1 Nocturia; R03.0 Elevated blood-pressure reading, without diagnosis of hypertension
CPT/HCPCS: 36415; 84153; 84402; 84403; 84443; 86038; 86039; 86617; 86618

== ENCOUNTER 2025-08-25 15:53 | Outpatient (AMB) | payer OTHER, SELFPAY ==
[2025-08-25 16:03] VITALS: BP 128/78; PULSE 69; TEMP 36.7; O2SAT 97; BMI 28.6
--- NOTE | 2025-08-25 16:03 | MHC.PC.OV ---
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 Accompanied by: Self / Same As Patient Allergies peanut (PEANUT) Allergy (Severe, Verified 08/25/25 16:18) THROAT SWELLING tree nut (TREE NUT) Allergy (Severe, Verified 08/25/25 16:18) THROAT SWELLING acetaminophen (Vicodin) Adverse Reaction (Unknown, Verified 08/25/25 16:18) metalic taste hydrocodone (Vicodin) Adverse Reaction (Unknown, Verified 08/25/25 16:18) metalic taste Medication List - Last Reconciled 08/25/25 by Umm Johnson PA-C No Known Home Meds Tobacco use date assessed: 07/02/25 Dental Screening Dental Screen Date: 07/02/25 Did you have a dental visit in the last 12 months?: Yes Did you have a dental problem in the last 6 months where you did not have access to dental care?: No Was dental information given to patient?: Patient has dentist HPI Ear Irrigation HPI Details 64-year-old male coming to the office for ear cleaning. Patient tells us today he has bilateral ear clogged feeling and decreased hearing. He has ears cleaned several years ago and has been over 10 years. [facility] Medical History History of alcoholism History of 2019 novel coronavirus disease (COVID-19) Former smoker Shortness of breath with exposure to COVID-19 virus Surgical History History of partial colectomy History of appendectomy History of tonsillectomy Family History Father No problems noted. 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 1. Little interest or pleasure in doing things: not at all 2. Feeling down, depressed, or hopeless: not at all 3. Trouble falling or staying asleep, or sleeping too much: several days 4. Feeling tired or having little energy: several days 5. Poor appetite or overeating: not at all 6. Feeling bad about yourself - or that you are a failure or have let yourself or your family down: not at all 7. Trouble concentrating on things, such as reading the newspaper or watching television: not at all 8. Moving or speaking so slowly that other people could have noticed. Or the opposite - being so fidgety or restless that you have been moving around a lot more than usual: not at all 9. Thoughts that you would be better off or of hurting yourself in some way: not at all Total score: 2 Depression Screening Interpretation: Negative Depression Screening Done: Yes 10773 - PHQ-9 Billing: Yes Source: Developed by Drs. Robin Croft, Courtney Oliva, Aden Carlos and colleagues, with an educational aida from [employer]. Thrive Questionnaire Date Thrive assessed: 05/04/25 I am a: Patient What is your living situation today?: I have a steady place to live Within the past 12 months, did the food you bought not last and you didn't have the money to get more?: Never true Within the past 12 months, did you worry whether your food would run out before you got money to buy more?: Never true Do you have trouble paying for medicines?: No Do you have trouble getting transportation to medical appointments?: No Do you have trouble paying your heating and electricity bill?: No Do you have trouble taking care of your child, family member or friend?: No Do you have trouble with day-to-day activities such as bathing, preparing meals, shopping, managing finances, etc.?: No Are you currently unemployed and looking for a job?: No Are you interested in more education?: No Please select the resources that you would like help with: None Currently or been in a relationship where the following occur: No concerns reported THRIVE Score: 0 AUDIT C Alcohol Use Questionnaire (AUDIT-C) 1. How often do you have a drink containing alcohol?: Never 3. How often do you have six or more drinks on one occasion?: Never Total Score: 0 YAIR-7 AMB Questionnaire YAIR-7 Date YAIR - 7 assessed: 05/04/25 Source: Developed by Drs. Robin Croft, Courtney Oliva, Aden Carlos and colleagues, with an educational aida from [employer]. Review of Systems Const Denies body aches, Denies chills and Denies fever(s) ENT Reports as per HPI and Denies otalgia Card Reports no additional complaints Resp Reports no additional complaints Physical exam (Primary Care) Vital Signs: Last Vital Signs Temp 98.1 F 08/25/25 16:03 Pulse 69 08/25/25 16:03 BP 128/78 08/25/25 16:03 Pulse Ox 97 08/25/25 16:03 Oxygen Delivery Method Room Air 08/25/25 16:03 BMI result Body Mass Index 28.6 Tobacco/Smoking Status: Tobacco use Status Tobacco use date assessed 07/02/25 08/25/25 16:06 Patient Tobacco Use Status Never used Tobacco 08/25/25 16:06 e-Cigarette/Vaping Use Never Used 08/25/25 16:06 PHQ-9: PHQ-9 Score PHQ-9: Total score 2 08/25/25 16:17 Depression Screening Interpretation: Negative Thrive Assessment: Date of Thrive Assessment Date Thrive assessed 05/04/25 08/25/25 16:06 Currently or been in a relationship where the following occur: No concerns reported Const General: cooperative, healthy appearing, comfortable and no acute distress HENMT Head: Yes normocephalic Ears: hearing grossly normal bilaterally and Abnormal EAC present cerumen impaction bilateral General nose exam: Normal external nose present Resp Effort & Inspection: normal respiratory effort Cardio Rate: regular rate Extrem General: Yes normal to inspection and Yes full ROM Psych Affect: normal affect Attitude: cooperative Insight: Good insight present (Psych) Judgement: Good judgement present (Psych) Office Procedures Cerumen Removal From which ear canal was the cerumen removed: bilateral Removal: irrigation and cerumen loop/spoon Notes: patient tolerated procedure well and no complications 95638-[id number] Irrigation/Lavage Coding Level of Care Code Est Pt Level 2 (05182) Diagnoses Bilateral impacted cerumen H61.23 CPT Codes Office Procedure - CPT: 46447-Pls Irrigation/Lavage ([id number]) Additional Codes PHQ-9 - 38049 - PHQ-9 Billing: Yes ([id number]) Assessment & Plan Assessment & Plan (1) Bilateral impacted cerumen: Code(s): H61.23 - Impacted cerumen, bilateral Category: Medical Plan: Right ear was cleaned completely using lighted curette and patient tolerated the procedure well. TM was visualized as intact with well aerated middle ear spaces without perforation or retraction. Left ear was attempted with lighted curette and irrigation was used. Cerumen was not completely removed patient was advised to use Debrox drops for the remainder of the cerumen. TM was unable to be completely visualized on this side but no evidence of perforation Plan This note was constructed using voice recognition software. While every effort has been made to ensure accuracy and weather forcaster, still areas may have been included sometimes these areas may affect the content or meeting of the given symptoms. Total time spent caring for the patient today was 20 minutes. This includes time spent before the visit reviewing the chart, time spent during the visit, and time spent after the visit and documentation.
--- OUTSIDE RECORDS SUMMARY | 2025-08-26 04:31 | XMS_ITS | Patient Health Record ---
Author Organization [facility] howard [place] Address [address] [place] [address] Care Team Providers Care Facility Examiner Name Role Phone Laura LO, My Valle Primary Care Provider Un available Tommyerin Yolis Unavailable [phone] Reason For Referral No Information Medications Medication [...] Problem Plantarflexion deformity of right foot (finding) ([id number]) Equinus contracture of right ankle (M24.571) Active confirmed Plan Of Treatment Pending Test Test Name Order Date X ray : Foot, right 3V 07/30/2018 Insurance Providers Payer Name Payer Address Payer Phone Subscriber Number Group Number Insured Name Patient Relationship to Insured Coverage Start Date Coverage End Date [facility] [address] [place] [address] [id number] [address] Self - patient is the insured Medical (General) History Medical History History ICD Code Diverticulitis Back pain Arthritis Broken bones Surgical History Surgery Date(Month/Year) tonsillectomy appendectomy colectomy, partial colonoscopy 03/2012
== END 2025-08-25 16:41 | disposition home or self-care (01) ==
LOC: HO.HMCH 15:54
PROVIDERS: PCP Internal Medicine
DX: H61.23 Impacted cerumen, bilateral (principal)

== ENCOUNTER → 2025-08-25 15:53 | Outpatient (BNVA) | payer OTHER, SELFPAY | PROVIDERS: PCP Internal Medicine | DX: H61.23 Impacted cerumen, bilateral (principal) | CPT/HCPCS: 69210; 96127 ==

== ENCOUNTER 2025-09-08 15:25 | Outpatient (AMB) | payer OTHER, SELFPAY ==
--- NOTE | 2025-09-08 15:27 | MHC.OFFVIS ---
Vital Signs 09/08/25 15:28 Height 5 ft 11 in Weight 200 lb BMI 27.9 BP 134/77 Blood Pressure Location Lt brachial Position Sitting Pulse 63 Intake Visit Reasons: Screening Intake Note: Patient is seen in office for colonoscopy screening. 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 Referred by PCP for pre colonoscopy screening. Chance reports prior colectomy secondary to recurrent diverticulitis approximately 11 years ago with subsequent resolution of symptoms. Since resection, denies significant gastrointestinal complaints; bowel movements are regular and daily with only occasional mild constipation, infrequently requiring OTC therapy. Denies hematochezia, abdominal pain, nausea, vomiting, or significant heartburn, though reports rare mild regurgitation. Appetite is good and weight stable except for a modest, unintentional decrease attributed to increased physical activity during a workplace relocation over recent months. No notable comorbidities or ongoing medication use; denies need for recent medical intervention for GI concerns. Relevant allergy and social history reviewed in context of procedure planning. Patient denies: fever/chills, n/v, appetite changes, pyrosis, regurgitation,dysphasia, unintentional wt loss, ab pain or melena/hematochezia. Social hx: -ETOH use recovery X 30 years. -smokes marijuana approx one/month, denies other recreational drug use -former smoker, cessation 20 years ago - family hx as below -denies personal hx of CA -denies significant cardiopulmonary history -tolerated anesthesia in the past without difficulty. [facility] Medical History History of alcoholism History of 2019 novel coronavirus disease (COVID-19) Former smoker Shortness of breath with exposure to COVID-19 virus Surgical History History of partial colectomy History of appendectomy History of tonsillectomy Family History (Updated 09/08/25 @ 15:53 by Wilma Menezes CNP) Father No problems noted. 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 Cognitive needs: No Hearing needs: No Vision needs: No Review of Systems Const Reports as per HPI ENT Reports as per HPI Card Reports as per HPI Resp Reports as per HPI GI Reports as per HPI Reports as per HPI Physical Exam Vital Signs: Last Vital Signs Pulse 63 09/08/25 15:28 BP 134/77 09/08/25 15:28 BMI result Body Mass Index 27.9 Const General: healthy appearing, no acute distress and well developed Nutritional Appearance: average body habitus Orientation/consciousness: patient oriented x3 HEENT Head: Yes normal to inspection, Yes normocephalic and Yes atraumatic Face and sinus: Yes normal facial exam Eyes General: appearance normal, both eyes and all related structures Neck Neck: Yes normal visual inspection Resp Effort & Inspection: normal respiratory effort, able to speak in complete sentences, no tracheal deviation and symmetric chest movement Cardio Jugular venous distension: no JVD Neuro General: patient oriented x3 Gait exam (Neuro): Normal gait present Psych Appearance: grossly normal Mental Status: mental status grossly normal Speech and movement: Normal speech and movement present Affect: normal affect Attitude: cooperative Thought process: Normal thought process present Thought content: Normal thought content present Insight: Good insight present (Psych) Judgement: Good judgement present (Psych) Assessment & Plan Assessment & Plan (1) Encounter for colorectal cancer screening: Code(s): Z12.11 - Encounter for screening for malignant neoplasm of colon; Z12.12 - Encounter for screening for malignant neoplasm of rectum Category: Medical Plan: Standard post-colectomy surveillance; no alarm symptoms, but history of complicated diverticulitis necessitates regular colonoscopic evaluation per guidelines. - Additional Testing: - Colonoscopy?order placed; prep instructions provided (split-dose polyethylene glycol + bisacodyl tablets, tailored to allergy/tolerance history). - Medication Management: - Miralax (PEG 3350) 1 bottle in 64oz Gatorade (avoid red, blue, purple) - Bisacodyl 2 tablets PO as bowel prep; prior tolerance confirmed, avoid flagged allergy; OTC per patient history - Lifestyle Recommendations: - Clear liquids only day prior to procedure; avoid solid food and specified colors as per protocol - Continue abstinence from alcohol and smoking; maintain current activity and dietary pattern - Follow-Up: - Results to be sent to PCP (Russell Bunch); patient prefers follow-up as needed based on findings Plan Follow-up as needed Time: I spent a total of 15 minutes on the date of encounter which includes: Preparing to see the patient (reviewed previous documentation, test results and medical history) Performing a medically appropriate exam and/or evaluation Ordering medications, tests, and procedures Documenting clinical information in the health record Orders: Referrals GI Procedure Notification Z12.11 - Encounter for screening for malignant neoplasm of colon, Z12.12 - Encounter for screening for malignant neoplasm of rectum Medications: New polyethylene glycol 3350 (Miralax) per colonoscopy prep instructions 238 grams PO ONCE 238 grams 0RF bisacodyl take two tablets once day of colonoscopy prep 10 mg (2 x 5 mg) PO ONCE 2 tabs 0RF Coding Level of Care Code New Pt New Pt Level 2 (02103) Patient Type New Diagnoses Encounter for colorectal cancer screening Z12.11; Z12.12
[2025-09-08 15:28] VITALS: BP 134/77; PULSE 63; BMI 27.9
--- OUTSIDE RECORDS SUMMARY | 2025-09-08 18:27 | XMS_ITS | Patient Health Record ---
[facility] [place] Address [address] [place] [address] Care Team Providers Care Bundling Machine Operator Name Role Phone Laura LO, My Valle Primary Care Provider Un available Tommyerin Yolis Unavailable [phone] Reason For Referral No Information Medications Medication [...] Problem Plantarflexion deformity of right foot (finding) ([id number]) Equinus contracture of right ankle (M24.571) Active confirmed Plan Of Treatment Pending Test Test Name Order Date X ray : Foot, right 3V 07/30/2018 Insurance Providers Payer Name Payer Address Payer Phone Subscriber Number Group Number Insured Name Patient Relationship to Insured Coverage Start Date Coverage End Date [facility] [address] [place] [address] [id number] [address] Self - patient is the insured Medical (General) History Medical History History ICD Code Diverticulitis Back pain Arthritis Broken bones Surgical History Surgery Date(Month/Year) tonsillectomy appendectomy colectomy, partial colonoscopy 03/2012
== END 2025-09-08 16:01 | disposition home or self-care (01) ==
LOC: HO.HGI 15:25
PROVIDERS: Visit Provider Nurse Practitioner Family
DX: Z01.818 Encounter for other preprocedural examination (principal); Z12.11 Encounter for screening for malignant neoplasm of colon
CPT/HCPCS: 99202

== ENCOUNTER 2025-09-24 13:06 | Outpatient (REF) | payer OTHER, SELFPAY ==
[2025-09-24 13:45] LABS: Appearance Urine Clear; Glucose Urine UA Negative (Negative); PH 5.5 (5.0-9.0); Specific Gravity - Urine 1.025 (1.005-1.025)
[2025-09-24 14:18] LABS: Alanine Aminotransferase 35 U/L (0-40); Albumin Level 4.3 g/dL (3.5-5.0); Alkaline Phosphatase 73 U/L (39-117); Anion Gap 10 (12-20); Aspartate Amino Transferase 25 U/L (5-37); Blood Urea Nitrogen 17 mg/dL (9-16); Calcium 8.9 mg/dL (8.4-10.2); Carbon Dioxide 24 mmol/L (22-29); Chloride 112 mmol/L (96-108); Cholesterol 157 mg/dL (<200); Estimated Glomerular Filt Rate > 60; HDL Cholesterol 39 mg/dL (>40); Potassium 4.0 mmol/L (3.3-5.1); Sodium 142 mmol/L (135-145); Total Protein 6.1 g/dL (6.5-8.0); Triglycerides 97 mg/dL (<150)
--- OUTSIDE RECORDS SUMMARY | 2025-09-24 14:53 | XMS_ITS | Patient Health Record ---
Author Organization [facility] [place] Address [address] [place] [address] Care Team Providers Care Screen Printing Supervisor Name Role Phone Laura LO, My Valle Primary Care Provider Un available Tommyerin Yolis Unavailable [phone] Reason For Referral No Information Medications Medication [...] Problem Plantarflexion deformity of right foot (finding) ([id number]) Equinus contracture of right ankle (M24.571) Active confirmed Plan Of Treatment Pending Test Test Name Order Date X ray : Foot, right 3V 07/30/2018 Insurance Providers Payer Name Payer Address Payer Phone Subscriber Number Group Number Insured Name Patient Relationship to Insured Coverage Start Date Coverage End Date [facility] [address] [place] [address] [id number] [address] Self - patient is the insured Medical (General) History Medical History History ICD Code Diverticulitis Back pain Arthritis Broken bones Surgical History Surgery Date(Month/Year) tonsillectomy appendectomy colectomy, partial colonoscopy 03/2012
== END 2025-09-24 13:07 | disposition home or self-care (01) ==
LOC: HO.LAB 13:06
DX: R03.0 Elevated blood-pressure reading, without diagnosis of hypertension (principal); R06.02 Shortness of breath; R35.1 Nocturia; R53.83 Other fatigue; E78.5 Hyperlipidemia, unspecified
CPT/HCPCS: 36415; 80053; 80061; 81003; 84443

== ENCOUNTER 2025-10-01 13:02 | Outpatient (AMB) | payer OTHER, SELFPAY ==
--- OUTSIDE RECORDS SUMMARY | 2025-10-01 13:06 | XMS_ITS | Patient Health Record ---
Author Organization [facility] howard [place] Address [address] [place] [address] Care Team Providers Care Corporate Health Consultant Name Role Phone Laura LO, My Valle Primary Care Provider Un available Tommyerin Yolis Unavailable [phone] Reason For Referral No Information Medications Medication [...] Problem Plantarflexion deformity of right foot (finding) ([id number]) Equinus contracture of right ankle (M24.571) Active confirmed Plan Of Treatment Pending Test Test Name Order Date X ray : Foot, right 3V 07/30/2018 Insurance Providers Payer Name Payer Address Payer Phone Subscriber Number Group Number Insured Name Patient Relationship to Insured Coverage Start Date Coverage End Date [facility] [address] [place] [address] [id number] [address] Cal[address] Self - patient is the insured Medical (General) History Medical History History ICD Code Diverticulitis Back pain Arthritis Broken bones Surgical History Surgery Date(Month/Year) tonsillectomy appendectomy colectomy, partial colonoscopy 03/2012
[2025-10-01 13:09] VITALS: BP 134/80; PULSE 63; RESP 18; O2SAT 95; BMI 28.6
--- NOTE | 2025-10-01 13:09 | A.OFFPC_ITS ---
Vital Signs 10/01/25 13:09 Height 5 ft 11 in Weight 205 lb 2 oz BMI 28.6 BP 134/80 Blood Pressure Location Lt brachial Position Sitting Respiration 18 Pulse 63 Pulse Source Pulse Oximeter Temp Source Temporal Artery Scan Pulse Oximetry (%) 95 Oxygen Delivery Method Room Air Intake Visit Reasons: hld/fatigue/elevated bp Counter Weigher Required: No Accompanied by: Self / Same As Patient Allergies peanut (PEANUT) Allergy (Severe, Verified 10/01/25 13:36) THROAT SWELLING tree nut (TREE NUT) Allergy (Severe, Verified 10/01/25 13:36) THROAT SWELLING acetaminophen (Vicodin) Adverse Reaction (Unknown, Verified 10/01/25 13:36) metalic taste hydrocodone (Vicodin) Adverse Reaction (Unknown, Verified 10/01/25 13:36) metalic taste Medication List - Last Reconciled 10/01/25 by HINA Martinez bisacodyl 10 mg (2 x 5 mg) PO ONCE polyethylene glycol 3350 (Miralax) 238 grams PO ONCE Tobacco use date assessed: 10/01/25 Fall risk assessment: 1 Fall in past year Last assessed Fall Risk: 10/01/25 Dental Screening Dental Screen Date: 10/01/25 Did you have a dental visit in the last 12 months?: Yes Did you have a dental problem in the last 6 months where you did not have access to dental care?: No Was dental information given to patient?: Patient has dentist HPI HPI Comments History of Present Illness Details The patient is a 65 year old male presenting for follow-up to review lab results and address several ongoing issues, including cerumen impaction, insomnia, and low libido. He recently had an ear cleaning where one ear could not be fully cleared of cerumen, despite using ear drops as instructed afterwards. He recalls a similar severe impaction 10-15 years ago that required an ENT specialist for removal. He reports chronic issues with poor sleep, characterized by frequent awakenings throughout the night. His sleep cycle has become irregular, often falling asleep as early as 5:00 PM and then waking at 3:00 AM. He has occasionally used his 's Seroquel, which he finds effective for sleeping through the night. The patient also expresses concern about low libido and difficulty maintaining an erection. He notes his testosterone level was checked previously and was normal. He has tried Cialis in the past but does not recall the outcome clearly and states the main issue is a lack of desire, which has caused performance anxiety. He denies feeling depressed. Review of recent lab work shows improvement in his cholesterol, although his HDL is still slightly low. His blood glucose was noted to be elevated, but he states he did not fast for the blood draw. For health maintenance, he is scheduled for a colonoscopy in December. Health Maintenance Lab results were reviewed, noting that cholesterol levels have improved but HDL remains slightly low. It was explained that his elevated glucose was likely attributable to his non-fasting status at the time of the blood draw. Recommendations were made to consider [id number] fish oil or CoQ10 to help increase HDL. He was reminded to proceed with his colonoscopy scheduled for [facility]. A follow-up visit is scheduled in 4 months for repeat lab work. 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 - Exercise: He does not engage in a form al exercise routine but stays active through his work. Results - Labs: Recent bloodwork showed an eleva eren glucose level on a non-fasting sample. - Cholesterol is improved and within the normal range, though HDL cholesterol remains slightly low. - Testosterone level is normal. [facility] Medical History History of alcoholism History of 2019 novel coronavirus disease (COVID-19) Former smoker Shortness of breath with exposure to COVID-19 virus Surgical History History of partial colectomy History of appendectomy History of tonsillectomy Family History Father No problems noted. 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 Cognitive needs: No Hearing needs: No Vision needs: No Questionnaire Thrive Questionnaire Date Thrive assessed: 10/01/25 I am a: Patient What is your living situation today?: I have a steady place to live Within the past 12 months, did the food you bought not last and you didn't have the money to get more?: Never true Within the past 12 months, did you worry whether your food would run out before you got money to buy more?: Never true Do you have trouble paying for medicines?: No Do you have trouble getting transportation to medical appointments?: No Do you have trouble paying your heating and electricity bill?: No Do you have trouble taking care of your child, family member or friend?: No Do you have trouble with day-to-day activities such as bathing, preparing meals, shopping, managing finances, etc.?: No Are you currently unemployed and looking for a job?: No Are you interested in more education?: No Currently or been in a relationship where the following occur: No concerns reported THRIVE Score: 0 YAIR-7 AMB Questionnaire YAIR-7 Date YAIR - 7 assessed: 05/04/25 Source: Developed by Drs. Robin Croft, Courtney Oliva, Aden Carlos and colleagues, with an educational aida from [employer]. Review of Systems Narrative Review of Systems - Constitutional: Reports feeling tired but denies depression. - Ears: Reports a feeling of blockage in one ear, which resolved with pressure relief after cerumen removal. - Respiratory: Reports mild snoring but denies gasping for air. - Genitourinary: Reports decreased libido and difficulty maintaining an erection. - Neurological/Psychiatric: Reports chronic poor sleep with frequent awakenings and an irregular sleep cycle. Const Reports difficulty sleeping, Reports fatigue, Denies headache(s), Reports lethargy and Reports snoring Eyes Denies loss of vision ENT Denies vertigo, Denies dizziness, Denies headache(s) and Denies sore throat Card Denies chest pain, Denies leg edema and Denies lightheadedness Resp Denies cough, Denies hemoptysis, Reports snoring and Denies wheezing GI Denies abdominal pain, Denies melena, Denies constipation, Denies diarrhea and Denies vomiting Reports change in libido (Decreased), Reports erectile dysfunction, Denies dysuria, Denies urinary frequency and Denies urinary urgency Musc Reports arthralgias (Left knee and left ankle), Denies joint swelling, Denies numbness and Denies tingling Skin/Breast Reports other (Toenail fungus) Neuro Denies Abnormal speech present, Denies behavioral changes, Denies vertigo, Denies dizziness, Denies headache(s), Denies loss of vision, Denies memory loss, Denies numbness and Denies tingling Psych Denies anxiety, Denies behavioral changes, Reports change in libido (Decreased), Denies depression, Denies memory loss and Denies panic attacks Endo Reports change in libido (Decreased) and Reports fatigue Darell/Lymph Denies easy bleeding and Denies easy bruising Aller/Immun Denies wheezing Physical exam (Primary Care) Vital Signs: Last Vital Signs Pulse 63 10/01/25 13:09 Resp 18 10/01/25 13:09 BP 134/80 10/01/25 13:09 Pulse Ox 95 10/01/25 13:09 Oxygen Delivery Method Room Air 10/01/25 13:09 BMI result Body Mass Index 28.6 Tobacco/Smoking Status: Tobacco use Status Tobacco use date assessed 10/01/25 10/01/25 13:11 Patient Tobacco Use Status Never used Tobacco 10/01/25 13:11 e-Cigarette/Vaping Use Never Used 10/01/25 13:11 Thrive Assessment: Date of Thrive Assessment Date Thrive assessed 10/01/25 10/01/25 13:17 Currently or been in a relationship where the following occur: No concerns reported Const General: healthy appearing, no acute distress, alert and awake Nutritional Appearance: well nourished Orientation/consciousness: oriented to person, oriented to place and oriented to time [facility] Ears: TM normal on the right and Abnormal EAC present cerumen impaction on the left General nose exam: Normal nasal mucous membranes and turbinates present Eyes Conjunctivae: conjunctivae normal Sclerae: sclerae normal Pupils: Equal, round and reactive pupils present Neck Neck: Yes no lymphadenopathy and Yes no JVD Thyroid: Thyroid normal Carotids: no bruits Resp Effort & Inspection: normal respiratory effort and not tachypneic Auscultation: no crackles, no rales, no rhonchi and no wheezes Cardio Rate: regular rate Rhythm: regular rhythm Heart sounds: S1 normal heart sound present, S2 normal heart sound present, no murmurs and normal S1 and S2 GI Palpation (GI): Soft to palpation, nontender, no hepatomegaly and no splenome jus Auscultation: normal bowel sounds General: Yes no CVA tenderness Back/Spine/Pelvis Back: no CVA tenderness Thoracic/Lumbar Spine: thoracic and lumbar spine normal to inspection Skin General skin exam: dry skin Nails: yellow and thickened (Great toe-bilateral) Neuro General: oriented to person, oriented to place and oriented to time Cranial nerves: Yes Equal, round and reactive pupils present Speech: No Abnormal speech present Gait exam (Neuro): Normal gait present Extrem Right upper extremity: full ROM Left upper extremity: full ROM Right lower extremity: full ROM; no edema Left lower extremity: full ROM; no edema Psych Mental Status: mental status grossly normal Speech and movement: Normal speech and movement present Affect: normal affect Attitude: cooperative Thought process: Normal thought process present Results Reviewed Results Reviewed: Laboratory Tests 07/16/25 09/24/25 09/24/25 12:16 13:11 13:17 Sodium 142 Potassium 4.0 Chloride 112 H Carbon Dioxide 24 Anion Gap 10 L BUN 17 H Creatinine 0.96 Estimated GFR > 60 Fasting Glucose 120 H Calcium 8.9 Total Bilirubin 0.3 AST 25 ALT 35 Alkaline Phosphatase 73 Total Protein 6.1 L Albumin 4.3 Triglycerides 97 Cholesterol 157 LDL Cholesterol, Calc 99 HDL Cholesterol 39 L Total PSA 2.74 TSH 0.77 0.82 Total Testosterone 504 Fr Testosterone Dialys 54.9 Urine Color Yellow Urine Appearance Clear Urine pH 5.5 Ur Specific [place] 1.025 Urine Protein Negative Urine Glucose (UA) Negative Urine Ketones Trace Urine Blood Negative Urine Nitrite Negative Ur Leukocyte Esterase Negative Coding Level of Care Code Est Pt Level 4 (71816) Diagnoses Elevated blood pressure reading R03.0 Hyperlipidemia, unspecified hyperlipidemia type E78.5 Hyperlipidemia type: unspecified Left ear impacted cerumen H61.22 Low libido R68.82 Erectile dysfunction, unspecified erectile dysfunction type N52.9 Erectile dysfunction type: unspecified Daytime hypersomnolence G47.19 Time Spent (min) 36 Assessment & Plan Assessment & Plan (1) Elevated blood pressure reading: Code(s): R03.0 - Elevated blood-pressure reading, without diagnosis of hypertension Category: Medical (2) HLD (hyperlipidemia): Code(s): E78.5 - Hyperlipidemia, unspecified Category: Medical Qualifiers: Hyperlipidemia type: unspecified Qualified Code(s): E78.5 - Hyperlipidemia, unspecified (3) Left ear impacted cerumen: Code(s): H61.22 - Impacted cerumen, left ear Category: Medical (4) Low libido: Code(s): R68.82 - Decreased libido Category: Medical (5) Erectile dysfunction: Code(s): N52.9 - Male erectile dysfunction, unspecified Category: Medical Qualifiers: Erectile dysfunction type: unspecified Qualified Code(s): N52.9 - Male erectile dysfunction, unspecified (6) Daytime hypersomnolence: Code(s): G47.19 - Other hypersomnia Category: Medical Plan Plan Patient was informed and verbally consented to the use of an ambient scribe for clinic note documentation during this visit. 1. Erectile Dysfunction And Low Libido The patient is concerned about a decrease in libido and difficulty maintaining an erection, despite having a normal testosterone level. The psychological component, including performance anxiety, was discussed as a contributing factor. The patient is not interested in starting Cialis or Viagra, or any medication for anxiety. A referral will be placed to Urology for a specialized evaluation and management, as they can offer more advanced treatment options. 2. Insomnia The patient reports chronic difficulty maintaining sleep and an irregular sleep- wake cycle. He was counseled on the risks of using his 's Seroquel, including potential cardiac side effects like prolonged QT interval. A prescription for trazodone was provided to be used on an as-needed basis to help with sleep. 3. Cerumen Impaction The patient presented with a persistent cerumen impaction in the left ear despite a recent cleaning attempt. A large plug of cerumen was removed in the office via lighted curette. Due to irritation noted in the ear canal post- procedure, antibiotic ear drops were prescribed (4 drops twice a day for 7 days) to prevent secondary infection. Blood pressure 134/80 mmhg, reinforced low-salt diet, we will continue to monitor LDL decreased from 121 to 99 mg/dL-goal of less than 100 mg/dL Reinforced low cholesterol diet and activity as tolerated We will recheck lipid panel in 4 months Discussion Notes I reviewed the patient's recent lab work with him, noting the improvement in his cholesterol and explaining that the elevated glucose reading was due to his non- fasting state. We discussed his complaint of insomnia, and I advised against using his 's Seroquel due to potential cardiac risks, instead prescribing trazodone for as-needed use. Regarding his concerns about low libido and erectile dysfunction, I explained that his testosterone level is normal and that these issues are often multifactorial, including performance anxiety. I recommended a referral to urology for a more specialized evaluation and access to a wider range of treatment options. I examined his right ear and successfully removed a large cerumen impaction. Due to visible irritation in the ear canal after the procedure, I prescribed antibiotic ear drops to prevent infection. We will follow up in 4 months to recheck his labs, with the goal of extending follow-up intervals if they continue to improve. Patient Instructions - Use the antibiotic ear drops for your left ear as prescribed: place 4 drops in the ear two times a day for 7 days. This will help heal the irritation and prevent infection. - You may take one tablet of trazodone at bedtime as needed when you have trouble sleeping. - We will send a referral to a urology specialist to further discuss your concerns with libido and erections. - You can consider taking [id number] supplements like fish oil or CoQ10 to help improve your good cholesterol (HDL). - Please remember to go for your colonoscopy scheduled in December. - Schedule a follow-up appointment in 4 months to have your lab work checked again. Orders: Orders Comprehensive [place]. Panel Fast 4 Months E78.5 - Hyperlipidemia, unspecified, H61.22 - Impacted cerumen, left ear, R03.0 - Elevated blood-pressure reading, without diagnosis of hypertension, R35.1 - Nocturia, R68.82 - Decreased libido TSH reflex Free T4 4 Months E78.5 - Hyperlipidemia, unspecified, H61.22 - Impacted cerumen, left ear, R03.0 - Elevated blood-pressure reading, without diagnosis of hypertension, R35.1 - Nocturia, R68.82 - Decreased libido Vitamin D 25-OH Total 4 Months E78.5 - Hyperlipidemia, unspecified, H61.22 - Impacted cerumen, left ear, R03.0 - Elevated blood-pressure reading, without diagnosis of hypertension, R35.1 - Nocturia, R68.82 - Decreased libido Complete Blood Count Auto Diff 4 Months E78.5 - Hyperlipidemia, unspecified, H61.22 - Impacted cerumen, left ear, R03.0 - Elevated blood-pressure reading, without diagnosis of hypertension, R35.1 - Nocturia, R68.82 - Decreased libido Lipid Panel 4 Months E78.5 - Hyperlipidemia, unspecified, H61.22 - Impacted cerumen, left ear, R03.0 - Elevated blood-pressure reading, without diagnosis of hypertension, R35.1 - Nocturia, R68.82 - Decreased libido UA CC w/rflx Micro + Cult 4 Months E78.5 - Hyperlipidemia, unspecified, H61.22 - Impacted cerumen, left ear, R03.0 - Elevated blood-pressure reading, without diagnosis of hypertension, R35.1 - Nocturia, R68.82 - Decreased libido Referrals Urology Referral N52.9 - Male erectile dysfunction, unspecified, R68.82 - Decreased libido Medications: New ciprofloxacin-dexamethasone 0.3-0.1 % 4 drps otic (ear) left BID 7.5 mL 0RF 7 days trazodone 50 mg PO BEDTIME PRN 30 tabs 3RF sleep
== END 2025-10-01 14:02 | disposition home or self-care (01) ==
LOC: HO.HMCH 13:03
DX: R03.0 Elevated blood-pressure reading, without diagnosis of hypertension (principal); E78.5 Hyperlipidemia, unspecified; H61.22 Impacted cerumen, left ear; R68.82 Decreased libido; N52.9 Male erectile dysfunction, unspecified; G47.19 Other hypersomnia